=== PATIENT | female | born 1995 | race Caucasian/White ===

== ENCOUNTER 2023-11-16 17:34 | Inpatient (IN) ==
[2023-11-16] MEDS: LACTATED RINGER'S 1,000 ML IV PRN (18:00)
[2023-11-16] MEDS ORDERED: CALCIUM CARBONATE 500 MG CHEWABLE TAB PO PRN (18:08)
[2023-11-16] MEDS ORDERED: ACETAMINOPHEN 325 MG TAB PO PRN (18:08)
[2023-11-16] MEDS ORDERED: OXYTOCIN 30 UNITS/NSS 30 UNITS/500 ML BAG IV PRN (18:08)
[2023-11-16] MEDS ORDERED: ALBUTEROL HFA 8 GM INHALER INH PRN (18:11)
[2023-11-16 18:49] LABS: Hematocrit (blood only) 36.1 % (37.0-47.0); Hemoglobin 12.6 g/dl (12.0-16.0); Mean Corpuscular Hemoglobin 33.2 pg (25.0-34.0); Mean Corpuscular Hgb Conc 34.9 g/dL (32.0-36.0); Mean Corpuscular Volume 95.3 fL (80.0-100.0); Mean Platelet Volume 9.8 fL (9.4-12.4); Platelet Count 180 K/uL (130-400); RDW Coefficient of Variation 13.4 % (11.5-14.5); RDW Standard Deviation 46.8 fL (36.4-46.3); Red Blood Count 3.79 M/uL (4.20-5.40); White Blood Count 12.18 K/ul (4.8-10.8)
[2023-11-16] MEDS: PENICILLIN GK 6 MU in DEXTROSE 5% 250 ML IV STA (19:04)
--- NOTE | 2023-11-16 19:30 | History & Physical Report ---
Date of Service November 16, 2023 Assessment & Plan (1) Normal labor: Plan: IUP at term in labor start PCN for GBS prophylaxis planning unmedicated anticipate vaginal Admission and Anticipated Discharge Date Admission Date: November 16, 2023 History of Present Illness Primary Care Provider: Lupe Emmanuel DO Patient is a 28 yo EDC 11/22/23 at 39+ weeks who presents in active labor. NO SPROM. no bloody show. GBS(+) otherwise uncomplicated. Allergies Allergy/AdvReac Type Severity Reaction Status Date / Time pollen extracts Allergy Verified 11/15/23 11:54 Home Medications Medication Instructions Recorded Confirmed Type cholecalciferol (vitamin D3) 25 25 mcg PO DAILY 3 months #90 caps 12/02/20 11/15/23 Rx mcg (1,000 unit) capsule PNV [id number] PO 04/06/23 11/15/23 History [ Gummies] levothyroxine 62.5 mcg capsule 62.5 mcg PO DAILY 11/16/23 11/16/23 History Patient History Medical History (Updated 11/16/23 @ 19:29 by Salome Cadet MD, FACOG) Migraine Narcolepsy due to underlying condition without cataplexy Hypothyroid Anxiety and depression Surgical History (Updated 11/16/23 @ 18:35 by Iesha Richards RN) Hx of tonsillectomy Family History Denies family history of Ovarian cancer Breast cancer Colorectal cancer Social History (Updated 04/06/23 @ 09:03 by Leora Gallardo) Smoking Status: Never smoker Second Hand Exposure: No; Do You Dip or Chew Tobacco: No; Tobacco Cessation Education Requested by Patient: No Hx Alcohol Use: No Hx Substance Use: No Preferred Language: Chinese Communication Ability: Effective Health Data Administrator Required: No Beliefs That Will Affect Care: None marital status: marital status details: Juan Nichole(29) [phone] Current Living Situation: Spouse Current Living Situation Comment: - Juan current occupational status: employed current occupation: [employer] Other Information That Helps Us Care for You: No Feels Safe at Home: Yes Safety Concerns: Feels Safe At This Time Do you think of yourself as: straight/heterosexual Gender Identity: Female Assistive Devices: None Review of Systems All systems reviewed & are unremarkable except as noted in HPI & below Physical Exam Constitutional: WD/WN, vitals as above Psychiatric: A+Ox3, euthymic affect Genitourinary: OB Exam Abdomen: + vertex and + regular contractions (Q 2minutes) Manual OB Exam: + cervical dilation 7 cm, + cervical effacement 100%, + station -2 and + amniotic fluid (bulging membranes) OB Exam Monitor Tracing: + external FHT monitor used, + external uterine monitor used, + category I and + normal FHT variability Results & Data Vital Signs (Past 12 Hours) Vital Signs Temp Pulse Resp BP Pulse Ox 11/16/23 19:22 88 98 11/16/23 19:07 95 H 119/80 11/16/23 18:14 93 H 123/73 11/16/23 18:13 98.1 F 93 H 20 123/73 Code Status & VTE Plan VTE Prophylaxis Plan VTE Prophylaxis will be ordered: No Coding Level of Care Code None Diagnoses Normal labor O80; Z37.9
[2023-11-16] MEDS ORDERED: fentaNYL citrate PF 100 MCG/2 ML VIAL EPI PRN (19:47)
[2023-11-16] MEDS ORDERED: SODIUM CHLORIDE 0.9% PF INJ 10 ML VIAL EPI PRN (19:47)
[2023-11-16] MEDS ORDERED: BUPIVACAINE 0.25% PF 30 ML VIAL EPI PRN (19:47)
[2023-11-16] MEDS ORDERED: LIDOCAINE 2% MPF LOCAL 5 ML VIAL EPI PRN (19:47)
[2023-11-16] MEDS ORDERED: ROPIVACAINE 0.5% PF 5 MG/ML 20 ML VIAL EPI PRN (19:47)
[2023-11-16] MEDS ORDERED: diphenhydrAMINE 50 MG/ML VIAL IV PRN (19:47)
[2023-11-16] MEDS ORDERED: NALBUPHINE HCL INJ 10 MG/ML AMP IV PRN (19:47)
[2023-11-16] MEDS ORDERED: NALOXONE HCL 0.4 MG/1 ML VIAL/CARP IV PRN (19:47)
[2023-11-16] MEDS ORDERED: ONDANSETRON INJ 2 MG/ML 2 ML VIAL IV PRN (19:47)
[2023-11-16] MEDS ORDERED: NALOXONE HCL 1 MG in SODIUM CHLORIDE 0.9% 1,000 ML IV PRN (19:47)
--- NOTE | 2023-11-16 19:51 | Anesthesiology Consultation ---
Date of Service November 16, 2023 Assessment & Plan (1) Encounter for pre-operative examination: Chart Review Chart Review: Patient NOT seen in Pre Admission Testing and Acceptable Risk for Labor Epidural Consults Requested none History Height/Weight Height: 5 ft 5 in Weight: 117.934 kg Allergies Allergy/AdvReac Type Severity Reaction Status Date / Time pollen extracts Allergy Verified 11/15/23 11:54 Medications Home Medications Medication Instructions Recorded Confirmed Last Taken cholecalciferol (vitamin D3) 25 25 mcg PO DAILY 3 months #90 caps 12/02/20 11/15/23 Unknown mcg (1,000 unit) capsule PNV [id number] PO 04/06/23 11/15/23 Unknown [ Gummies] levothyroxine 62.5 mcg capsule 62.5 mcg PO DAILY 11/16/23 11/16/23 11/16/23 07:00 Active Medications Generic Name Dose Route Start Last Admin Trade Name Freq PRN Reason Stop Dose Admin Lactated Ringer's 1,000 mls @ 125 mls/hr 11/16/23 18:08 11/16/23 18:50 Lr IV 11/18/23 18:07 125 mls/hr .Q8H PRN Infusion L&D Protocol Protocol Past Medical History Medical History (Updated 11/16/23 @ 19:51 by Moses Cortes MD) Encounter for pre-operative examination Migraine Narcolepsy due to underlying condition without cataplexy Hypothyroid Anxiety and depression Exercise / Class Metabolic Activity II 4-5 Yardwork/Stairs/Walk up hill Past Family History Family History Denies family history of Ovarian cancer Breast cancer Colorectal cancer Past Surgical History Surgical History Hx of tonsillectomy Past Anesthesia History No Hx of Anesthesia Complications and No Family Hx of Anesthesia Complications History of PONV No Hx of PONV and No Hx of Motion Sickness Social History Smoking Status: Never smoker Do You Dip or Chew Tobacco: No Hx Alcohol Use: No Hx Substance Use: No Physical Exam Vital Signs Last Vital Signs Temp 36.7 C 11/16/23 19:07 Pulse 98 H 09/04/24 20:22 Resp 22 11/16/23 19:07 BP 128/77 11/16/23 20:21 Pulse Ox 94 11/16/23 20:22 Testing Laboratory Results 11/16/23 18:32
[2023-11-16] MEDS: fentaNYL citrate PF 100 MCG/2 ML VIAL EPI STA (20:27)
[2023-11-16] MEDS: BUPIVACAINE 0.25% PF 30 ML VIAL EPI STA (20:27)
[2023-11-16] MEDS: LIDOCAINE 2%/EPINEPHRINE 1:200,000 20 ML PF EPI STA (20:27)
[2023-11-16] MEDS: fentANYL 2 MCG/ML BUPIVacaine 0.125%-NSS 100ML BAG EPI PRN (20:28)
[2023-11-16] MEDS: ePHEDrine sulfate 50 MG/ML AMP IV PRN (20:43)
[2023-11-16] MEDS: LIDOCAINE 2%/EPINEPHRINE 1:200,000 20 ML PF ONE (21:34)
[2023-11-16] MEDS: SODIUM CHLORIDE 0.9% PF INJ 10 ML VIAL EPI STA (21:34)
[2023-11-16] MEDS: fentANYL 2 MCG/ML BUPIVacaine 0.125%-NSS 100ML BAG ONE (21:34)
[2023-11-16] MEDS: BUPIVACAINE 0.25% PF 30 ML VIAL ONE (21:34)
[2023-11-16] MEDS: ePHEDrine sulfate 50 MG/ML AMP ONE (21:35)
[2023-11-16] MEDS: SODIUM CHLORIDE 0.9% PF INJ 10 ML VIAL ONE (21:35)
[2023-11-16] MEDS: fentaNYL citrate PF 100 MCG/2 ML VIAL ONE (21:35)
[2023-11-16] MEDS: OXYTOCIN 30 UNITS/NSS 30 UNITS/500 ML BAG IV PRN (22:04)
[2023-11-16] MEDS: PENICILLIN GK 3 MU in DEXTROSE 5% 100 ML IV PRN (23:00)
[2023-11-17] MEDS: LIDOCAINE 1% LOCAL 20 ML VIAL INFIL PRN (00:47)
[2023-11-17] MEDS ORDERED: BENZOCAINE 20% SPRY 85 APPLN/85 GM CAN EXT PRN (01:07)
[2023-11-17] MEDS ORDERED: oxyCODONE/ACETAMINOPHEN 5mg/325mg TAB PO PRN (01:07)
[2023-11-17] MEDS ORDERED: HYDROCORTISONE ACETATE 25 MG SUPP PR PRN (01:07)
[2023-11-17] MEDS ORDERED: OXYTOCIN 30 UNITS/NSS 30 UNITS/500 ML BAG IV PRN (01:07)
--- NOTE | 2023-11-17 01:37 | Delivery Summary ---
Vaginal Delivery Summary Date of Service November 17, 2023 Vaginal Delivery Summary and 1st Degree LAC (left labial) Patient is a 28-year-old G1, P0 female EDC of 11/22/2023 who presented in active labor at 39-2/7 weeks. She received effective epidural analgesia. Membranes ruptured spontaneously for clear fluid. She required Pitocin augmentation of her contractions and she progressed to full dilation. She pushed effectively over intact perineum for delivery of a viable male infant. After the head was delivered, there was a mild shoulder dystocia which was resolved with hyperflexion of the hips. The anterior shoulder then delivered and the rest of the followed with ease. If it was placed on the mother's abdomen for further attention and drying. He was vigorous crying and moving all 4 limbs. After 1 minute, the cord was clamped and cut. After cord blood was obtained, the placenta was expressed intact with a three-vessel cord. bleeding was controlled with dilute Pitocin and fundal massage. A left labial first- degree laceration was repaired with 3-0 chromic in the usual fashion. Was near the urethral opening. She was then straight cathed for approximately 150 cc of urine to ensure the urethra was patent. 1% lidocaine was used to anesthetize the area of the laceration prior to the repair. QBL was not possible as the delivery drape was not calibrated. EBL was 412 cc. Mother and infant were doing well after delivery. [facility] [place]ag[place] Delivery Charge Delivery Type Details: and 1st Degree LAC (left labial)
[2023-11-17] MEDS: DIPHTHER/TETAN/PERTUS Vaccine (Tdap, Adol/Adult) 0.5mL IM ONE (02:12)
[2023-11-17] MEDS: IBUPROFEN 600 MG TAB PO PRN (02:47)
[2023-11-17] MEDS: ACETAMINOPHEN 325 MG TAB PO PRN (02:47)
[2023-11-17] MEDS ORDERED: SODIUM CHLORIDE 0.9% 250 ML IV PRN (03:44)
[2023-11-17] MEDS ORDERED: Nursing to Pharmacy Communication SCH (04:00)
--- NOTE | 2023-11-17 05:56 | Anesthesia Procedure Note ---
Date of Service November 17, 2023 Anesthesia Post Epidural Note Vital Signs Vital Signs: Temp Pulse Resp BP Pulse Ox O2 Del Method 36.6 C 92 H 20 102/67 97 Room Air 11/17/23 04:11/17/23 04:11/17/23 04:11/17/23 04:11/17/23 04:11/17/23 04:15 Pain Intensity Bilateral Lower Abdomen: Pain Intensity: 2 Notes Mental Status: alert / awake / arousable and participated in evaluation Patient Amnestic to Procedure: No Nausea / Vomiting: adequately controlled Pain: adequately controlled Airway Patency, RR, SpO2: stable & adequate BP & HR: stable & adequate Hydration State: stable & adequate Neuraxial Anesthesia: was administered and sensory block resolved Anesthetic Complications: no major complications apparent and Pt Satisfied with anesthetic care Epidural: Removed without complications and With tip intact
[2023-11-17] MEDS: LEVOTHYROXINE SODIUM 25 MCG TABLET PO SCH (06:41)
[2023-11-17] MEDS: LEVOTHYROXINE SODIUM 50 MCG TABLET PO SCH (06:41)
[2023-11-17] MEDS ORDERED: LEVOTHYROXINE SODIUM 25 MCG TABLET PO SCH (09:00)
[2023-11-17] MEDS ORDERED: LEVOTHYROXINE SODIUM 50 MCG TABLET PO SCH (09:00)
[2023-11-17] MEDS: PRENATAL VITAMIN 1 TAB PO SCH (09:02)
[2023-11-17] MEDS: DOCUSATE SODIUM 100 MG CAP PO SCH (09:02)
--- NOTE | 2023-11-18 05:59 | Obstetrical Progress Note ---
Date of Service November 18, 2023 Assessment & Plan (1) Encounter for supervision of normal first : Plan Pt is 28 yo post- day 1 s/p at 39w2d Feel well today. Vital signs and Hgb are stable Encourage continued ambulation and breast feeding Pain controlled with ibuprofen Discharge to home, follow up with Dr. Cadet in 6 weeks. Admission and Anticipated Discharge Date Admission Date: November 16, 2023 Supervising Physician Co-Signing Physician Notes Resident Physician Supervision Note: I was present with [Name of resident] during the history and exam. I discussed the case with the resident and agree with the findings and plan as documented in the note. Any exceptions or clarifications are listed here: [None] Documented By: Davida Briones MD, FACOG Subjective Pt is 28 yo post- day 1 s/p at 39w2d Ambulation:In room, short distances Voiding:voiding normally Passing gas: no BM:none Diet tolerance:regular diet Lochia:bloody, no clots Feeding type: breast Current pain level: 4 /10 improved with ibuprofen Resting comfortably this morning in NAD. Denies ESCALANTE, CP, SOB, N/V/D, LE pain/swelling. Review of Systems Review of Systems: As per HPI Physical Exam Constitutional: WD/WN, vitals as above Respiratory: normal respiratory effort, lungs clear to auscultation Gastrointestinal (Abdomen): normal bowel sounds, soft, nontender, no hepatosplenomegaly Uterine fundus firm and at level of umbilicus Neurologic: PERRL, EOMI, accommodation nl, no face palsy, no dysarthria Moving all 4 extremities on command Psychiatric: A+Ox3, euthymic affect Results & Data Vital Signs (Past 12 Hours) Vital Signs Temp Pulse Resp BP Pulse Ox O2 Del Method 11/18/23 00:00 36.5 C 75 18 119/71 97 Room Air 11/17/23 19:30 36.6 C 94 H 20 108/73 96 Room Air Laboratory Results 11/18/23 11/16/23 Range/Units 06:56 18:32 WBC 11.02 H (4.8-10.8) K/ul RBC 3.65 L (4.20-5.40) M/uL Hgb 11.9 L (12.0-16.0) g/dl Hct 35.3 L (37.0-47.0) % MCV 96.7 (80.0-100.0) fL MCH 32.6 (25.0-34.0) pg MCHC 33.7 (32.0-36.0) g/dL RDW Std Deviation 48.2 H (36.4-46.3) fL RDW Coeff of Theresa 13.6 (11.5-14.5) % Plt Count 186 (130-400) K/uL MPV 9.5 (9.4-12.4) fL Crossmatch See Detail Resident Activity Tracking Resident Involvement: Resident Care Provided Care Provided: Adult [facility]
[2023-11-18 07:22] LABS: Hematocrit (blood only) 35.3 % (37.0-47.0); Hemoglobin 11.9 g/dl (12.0-16.0); Mean Corpuscular Hemoglobin 32.6 pg (25.0-34.0); Mean Corpuscular Hgb Conc 33.7 g/dL (32.0-36.0); Mean Corpuscular Volume 96.7 fL (80.0-100.0); Mean Platelet Volume 9.5 fL (9.4-12.4); Platelet Count 186 K/uL (130-400); RDW Coefficient of Variation 13.6 % (11.5-14.5); RDW Standard Deviation 48.2 fL (36.4-46.3); Red Blood Count 3.65 M/uL (4.20-5.40); White Blood Count 11.02 K/ul (4.8-10.8)
[2023-11-18 07:54] VITALS: BP 116/75; PULSE 65; RESP 16; TEMP 97.9; O2SAT 98
[2023-11-18] MEDS ORDERED: bisacodyL 5 MG TABEC PO SCH (20:00)
[2023-11-19] MEDS ORDERED: bisacodyL 10 MG SUPP PR PRN
== END 2023-11-18 14:35 | disposition home or self-care (01) | DRG 807 ==
LOC: OPB 17:34 → 4S1 17:36 → 4E1 11-17 03:53
DX: O66.0 Obstructed labor due to shoulder dystocia; O99.824 Streptococcus B carrier state complicating childbirth; O70.0 First degree perineal laceration during delivery; Z37.0 Single live birth; Z3A.39 39 weeks gestation of pregnancy